=== PATIENT | female | born 1955 | race African-American/Black ===

== ENCOUNTER 2016-08-18 17:19 | Emergency (ER) | payer MEDICARE, OTHER ==
[2016-08-18] MEDS ORDERED: Ibuprofen 800 MG TAB ONE (18:24)
--- NOTE | 2016-08-18 23:16 | RAD ---
LEFT WRIST THREE VIEWS 08/18/16 A comminuted impacted fracture of the distal radius is present with some fracture lines extending in to the radiocarpal joint. There is slight posterior displacement of some of the fragments. As best a s I can tell, the ulnar styloid is intact. A rolando of bone near its tip appears to be due to an old injury. There is essentially no observable trapezium. The base of the first metacarpal does not real ly seem to articulate with much of anything. This is apparently longstanding. IMPRESSION: 1. Impacted, slightly comminuted fracture of the distal radius, acute. 2. Absent trapezium. POS: HOME
== END 2016-08-18 18:32 | disposition home or self-care (01) ==
LOC: BURERS 17:19
DX: S52.502A Unspecified fracture of the lower end of left radius, initial encounter for closed fracture (principal); E11.9 Type 2 diabetes mellitus without complications; K21.9 Gastro-esophageal reflux disease without esophagitis; E78.5 Hyperlipidemia, unspecified; I10 Essential (primary) hypertension; F32.9 Major depressive disorder, single episode, unspecified; W01.0XXA Fall on same level from slipping, tripping and stumbling without subsequent striking against object, initial encounter; Z87.891 Personal history of nicotine dependence
CPT/HCPCS: 29125

== ENCOUNTER 2017-03-16 21:56 | Emergency (ER) | payer MEDICARE, OTHER ==
[~2017-03-16 21:56] MED LIST: Iopamidol 370 76% 100 ML VIAL ONE
[2017-03-16 22:57] LABS: #Basophils 0.1 thou/uL (0.0-0.2); #Eosinphils 0.2 thou/uL (0.0-0.7); #Lymphocytes 3.8 thou/uL (1.20-3.40); #Monocytes 0.4 thou/uL (0.11-0.59); #Neutrophils 3.8 thou/uL (1.40-6.50); %Basophils 1.2 % (0.0-1.0); %Eosinophils 2.5 % (0.0-10.0); %Lymphocytes 45.4 % (21.0-51.0); %Monocytes 5.3 % (0.0-10.0); %Neutrophils 45.6 % (42.0-75.0); Hemoglobin 13.7 g/dL (12.0-16.0); Mean Corpuscular HGB CONC 33.2 g/dL (32.0-36.0); Mean Corpuscular Hemoglobin 26.3 pg (27.0-31.0); Mean Corpuscular Volume 79.4 fl (81.0-99.0); Mean Platelet Volume 5.6 fL (7.4-10.4); Platelet Count 364 thou/uL (130-400); RBC Distribution Width 12.6 % (11.5-14.5); Red Blood Cell (RBC) Count 5.22 mill/uL (4.20-5.40); White Blood Cell (WBC) Count 8.3 thou/uL (4.8-10.8)
[2017-03-16 23:00] LABS: INR-International Normal Ratio 0.9; PTT 29.3 SEC (22.9-36.1); Prothrombin Time 11.8 SEC (12.0-14.7)
[2017-03-16 23:02] LABS: D-Dimer Test 0.62 *mcg/mL (0.27-0.43)
[2017-03-16 23:09] LABS: ALT (SGPT) 109 U/L (8-55); AST (SGOT) 59 U/L (5-34); Albumin 4.5 g/dL (3.4-4.8); Alkaline Phosphatase 103 U/L (40-150); Anion Gap 17 mmol/L (10-20); BUN (Urea Nitrogen) 13 mg/dL (9.8-20.1); Bilirubin, Total 0.4 mg/dL (0.2-1.2); Calc. Creatinine Clearance 0 mL/min (70-130); Carbon Dioxide 25 mmol/L (23-31); Chloride 102 mmol/L (98-107); Estimated GFR-MDRD Greater than 90; Globulin 2.9 g/dL (2.4-3.5); Glucose 120 mg/dL (80-115); Potassium 3.4 mmol/L (3.5-5.1); Protein, Total 7.4 g/dL (6.0-8.3); Sodium 141 mmol/L (136-145)
[2017-03-16 23:10] LABS: CKMB 0.9 ng/mL (0-6.6); Troponin I 0.025 ng/mL (< 0.028)
--- NOTE | 2017-03-17 09:10 | RAD ---
AP PORTABLE CHEST: 03/16/2017 2241 HOURS COMPARISON: 12/07/2015 FINDINGS: The heart remains normal in size and the lungs are clear. No infiltrate, effusion, or edema is seen. No infiltrates are present. The mediastinum appears normal. IMPRESSION: No acute thoracic findings. POS: HOME
--- NOTE | 2017-03-17 14:14 | CT ---
PRELIMINARY REPORT/[facility]/EMERGENCY AFTER HOURS PROCEDURE: EXAM: CT Angiography Chest With Intravenous Contrast CLINICAL HISTORY: 61 years old, female; Signs and symptoms; Other: High blood pressure; Patient HX: Pt presents to the er for elevated blood pressure; C/O elevated b/p upon arrival, symptoms began 2 hours ago, additional triage notes: Denied any pain upon arrival. TECHNIQUE: Axial computed tomographic angiography images of the chest with intravenous contrast using pulmonary embolism protocol. All CT scans at this facility use one or more dose reduction techniques, viz.: aut omated exposure control; ma/kV adjustment per patient size (including targeted exams where dose is ma tched to indication; i.e. head); or iterative reconstruction technique. Coronal reformatted images were created and reviewed. Oblique reformatted images were created and reviewed. CONTRAST: 100 mL of ISOVUE 370 administered intravenously. COMPARISON: No relevant prior studies available. FINDINGS: Pulmonary arteries: Unremarkable. No pulmonary embolism. Aorta: No acute findings. No thoracic aortic aneurysm. Lungs: Scattered pulmonary parenchymal cysts. No mass. Pleural space: Unremarkable. No significant effusion. No pneumothorax. Heart: Unremarkable. No cardiomegaly. No significant pericardial effusion. No evidence of RV dysfunct ion. Bones/joints: No acute fracture. No dislocation. Soft tissues: Unremarkable. Lymph nodes: Unremarkable. No enlarged lymph nodes. 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 IMPRESSION: No pulmonary embolism is evident. Thank you for allowing us to participate in the care of your patient. Dictated and Authenticated by: Odette Plascencia MD 03/17/2017 12:33 AM Central Time ([place] & [place]) FINAL REPORT CT ANGIO CHEST: 03/17/2017 TECHNIQUE: A spiral CT of the chest was performed after a bolus of IV contrast for evaluation of possible pulmon leeroy embolism. Axial slices were acquired and then coronal and oblique coronal reformations were obta ined. FINDINGS: The bolus is slightly mistimed, with the most concentrated portions being in the left heart circulati on and then the right. Because of this, the sensitivity of this exam to pulmonary emboli is only mod erate. It would miss small emboli in the middle and peripheral branches. In the sections shown, there were no defects to strongly suggest emboli. There was no sign of aortic aneurysm or dissection. No mediastinal mass, adenopathy, or other acute change was seen. The patie nt's trachea was rather wide. There was a small, 8 mm lucency seen in the right lobe of the thyroid gland that should have an elective ultrasound, to see if it is a cyst or other pathology. No coronar y artery calcifications were appreciated. There was no pericardial fluid. The lungs were clear. There was no infiltrate or pulmonary nodule of concern. No pleural effusions were seen. The visible portions of the upper abdomen were unremarkable. IMPRESSION: 1. Low to moderate sensitivity study showing no evidence of pulmonary embolism. 2. An 8 mm, rounded lucency in the right lobe of the thyroid gland. Elective ultrasound followup re commended. Report in agreement with preliminary reading by [facility]. CODE T POS: HOME
== END 2017-03-17 00:57 | disposition home or self-care (01) ==
LOC: BURERS 21:56
DX: R07.89 Other chest pain (principal); I10 Essential (primary) hypertension; E11.9 Type 2 diabetes mellitus without complications; K21.9 Gastro-esophageal reflux disease without esophagitis; E78.5 Hyperlipidemia, unspecified; F32.9 Major depressive disorder, single episode, unspecified; Z87.891 Personal history of nicotine dependence; Z79.899 Other long term (current) drug therapy; Z79.84 Long term (current) use of oral hypoglycemic drugs
CPT/HCPCS: 71045; 71275; 80053; 82553; 83880; 84484; 85025; 85379; 85610; 85730; 93005; 94760; A4216

== ENCOUNTER 2023-12-15 17:46 | Emergency (ER) | payer MEDICARE, OTHER ==
[2023-12-15 18:25] LABS: Hematocrit 35.7 % (36.0-47.0); Hemoglobin 11.3 g/dL (12.0-16.0); Mean Corpuscular HGB CONC 31.5 g/dL (32.0-36.0); Mean Corpuscular Hemoglobin 26.1 pg (27.0-31.0); Mean Corpuscular Volume 82.9 fl (78.0-98.0); Mean Platelet Volume 5.5 fL (7.4-10.4); Platelet Count 335 10x3/uL (130-400); RBC Distribution Width 12.6 % (11.5-14.5); Red Blood Cell (RBC) Count 4.31 mill/uL (4.20-5.40)
[2023-12-15 18:38] LABS: Anion Gap 18 mmol/L (10-20); BUN (Urea Nitrogen) 19 mg/dL (9.8-20.1); Calc. Creatinine Clearance 0 mL/min (70-130); Calcium 9.4 mg/dL (7.8-10.44); Carbon Dioxide 23 mmol/L (23-31); Chloride 104 mmol/L (98-107); Estimated GFR 60; Glucose 111 mg/dL (80-115); Potassium 3.5 mmol/L (3.5-5.1); Sodium 141 mmol/L (136-145)
[2023-12-15 18:41] LABS: Eosinophils 1 % (0-10); Lymphocytes 48 % (21-51); MDiff Complete? YES; Monocytes 8 % (0-10); Neutrophil 36 % (42-75); Platelet Adequacy Comment Appears Adequate
== END 2023-12-15 19:43 | disposition home or self-care (01) ==
LOC: BURERS 17:46
DX: R42 Dizziness and giddiness (principal); I10 Essential (primary) hypertension; E11.9 Type 2 diabetes mellitus without complications; E78.00 Pure hypercholesterolemia, unspecified; Z79.84 Long term (current) use of oral hypoglycemic drugs; Z79.899 Other long term (current) drug therapy; Z87.891 Personal history of nicotine dependence
CPT/HCPCS: 80048; 85025; 99284